=== PATIENT | male | born 1975 | race Caucasian/White ===

== ENCOUNTER 2016-06-12 14:36 | Emergency (ER) | payer BC ==
[2016-06-12 14:52] VITALS: BP 133/93
[2016-06-12] MEDS ORDERED: Ibuprofen TAB* 600 MG PO ONE (15:25)
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
== END 2016-06-12 15:47 | disposition home or self-care (01) ==
LOC: UCCORT 14:36
DX: S16.1XXA Strain of muscle, fascia and tendon at neck level, initial encounter (principal); Z72.0 Tobacco use; Z88.8 Allergy status to other drugs, medicaments and biological substances; V43.52XA Car driver injured in collision with other type car in traffic accident, initial encounter; Y92.9 Unspecified place or not applicable
CPT/HCPCS: 99213; A9270-GY; G0463

== ENCOUNTER 2017-08-21 08:39 | Emergency (ER) | payer BC ==
[2017-08-21 09:05] VITALS: BP 138/76
--- NOTE | 2017-08-21 09:28 | UC ---
Hip/Pelvis Pain - HPI Summary HPI Summary: Pt c/o gradual onset right hip pain after lifting weights/ lifts and squats 1 week ago. Pt states that now he has pain that radiates from right groin to right lateral hip. states that his leg/hip feel better with foot/leg outward rotation - History Of Current Complaint Chief Complaint: UCLowerExtremity Stated Complaint: RIGHT HIP/GROIN PAIN Time Seen by Provider: 08/21/17 08:51 Hx Obtained From: Patient Onset/Duration: Gradual Onset, Lasting Days - 7 Timing: Constant Severity Initially: Mild Severity Currently: Moderate Pain Intensity: 6 Location: Radiates To: - right hip and groin Character Of Pain: Dull, Aching, Stiffness Aggravating Factor(s): Movement Alleviating Factor(s): Rest, Position Associated Signs And Symptoms: Positive: Negative - Allergies/Home Medications Allergies/Adverse Reactions: Allergies Allergy/AdvReac Type Severity Reaction Status Date / Time NEOPRENE Allergy Rash Uncoded 06/12/16 14:52 Home Medications: Home Medications Ibuprofen 800 mg PO 08/21/17 [History] PMH/Surg Hx/FS Hx/Imm Hx Previously Healthy: Yes Other History Of: Anticoagulant Therapy Negative For: HIV, Hepatitis B, Hepatitis C - Surgical History Surgical History: None - Family History Known Family History: Positive: Cardiac Disease, Hypertension - He is not sure, what this family has. - Social History Occupation: Employed Full-time Lives: With Family Alcohol Use: Occasionally Substance Use Type: None Smoking Status (MU): Current Some Day Smoker Type: Cigars Amount Used/How Often: 1 PER DAY Have You Smoked in the Last Year: Yes Review of Systems Constitutional: Negative Skin: Negative Eyes: Negative ENT: Negative Respiratory: Negative Cardiovascular: Negative Gastrointestinal: Negative Genitourinary: Negative Motor: Decreased ROM - pain with rotation Neurovascular: Negative Musculoskeletal: Arthralgia, Myalgia - right hip Neurological: Negative Psychological: Negative Is Patient Immunocompromised?: No All Other Systems Reviewed And Are Negative: Yes Physical Exam Triage Information Reviewed: Yes Appearance: Well-Appearing Vital Signs: Initial Vital Signs Temp 98.1 F 08/21/17 08:57 Pulse 65 08/21/17 08:57 Resp 16 08/21/17 08:57 BP 138/76 08/21/17 08:57 Pulse Ox 100 08/21/17 08:57 Vital Signs Reviewed: Yes Eye Exam: Normal ENT Exam: Normal Neck exam: Normal Respiratory Exam: Normal Male Genital Exam: Positive: Normal Genitalia, Other - no inguinal hernia appreciated Musculoskeletal Exam: Other Musculoskeletal: Positive: Other: - c/o pain with ROM to right hip Neurological Exam: Normal Psychological Exam: Normal Skin Exam: Normal Diagnostics - Radiology No standard instances Radiology Interpretation Completed By: Radiologist - OTHER FINDINGS: None. IMPRESSION: OSTEOARTHRITIS. NO ACUTE OSSEOUS INJURY. IF SYMPTOMS PERSIST, RECOMMEND REPEAT IMAGING. Hip Injury Course/Dx - Differential Dx/Diagnosis Differential Diagnosis/HQI/PQRI: Bursitis, Sprain, Strain Provider Diagnoses: [facility] pubalgia Discharge - Sign-Out/Discharge Documenting (check all that apply): Discharge - Discharge Plan Condition: Stable Disposition: HOME Patient Education Materials: R.I.C.E. Treatment (ED), Hip Pain (ED) Referrals: Shekhar Yoder MD [Medical Doctor] - If Needed No Primary Care Phys,NOPCP [Primary Care Provider] - If Needed - Billing Disposition and Condition Condition: STABLE Disposition: HOME
--- NOTE | 2017-08-21 09:37 | RAD ---
HISTORY: Right hip pain, lifting injury one week ago COMPARISONS: None VIEWS: 3, Frontal view of the pelvis with frontal and frog-leg views of the right hip FINDINGS: BONE DENSITY: Normal. BONES: There is no displaced fracture. 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 ALIGNMENT: There is no dislocation. SOFT TISSUES: Unremarkable. OTHER FINDINGS: None. IMPRESSION: OSTEOARTHRITIS. NO ACUTE OSSEOUS INJURY. IF SYMPTOMS PERSIST, RECOMMEND REPEAT IMAGING.
== END 2017-08-21 09:56 | disposition home or self-care (01) ==
LOC: UCCORT 08:39
DX: M25.551 Pain in right hip (principal); R10.31 Right lower quadrant pain; X50.3XXA Overexertion from repetitive movements, initial encounter; X50.0XXA Overexertion from strenuous movement or load, initial encounter; F17.210 Nicotine dependence, cigarettes, uncomplicated; Y93.B9 Activity, other involving muscle strengthening exercises; Y92.9 Unspecified place or not applicable
CPT/HCPCS: 99211; G0463